=== PATIENT | female | born 1950 ===

== ENCOUNTER → 2023-03-29 | Outpatient (CLI) | payer MEDICARE, OTHER | LOC: LAB 14:57 → LAB SHORT 14:57 | DX: J02.9 Acute pharyngitis, unspecified (principal) | CPT/HCPCS: 87081 ==

== ENCOUNTER → 2023-07-10 | Outpatient (CLI) | payer MEDICARE, OTHER ==
[2023-07-11 15:48] LABS: Adenovirus F 40/41 Not Detected (NOT DETECT); Astrovirus Not Detected (NOT DETECT); Campylobacter Sp Not Detected (NOT DETECT); Cryptosporidium Not Detected (NOT DETECT); Cyclospora Cayetanensis Not Detected (NOT DETECT); E. Coli O157 Not Detected (NOT DETECT); Entamoeba Histolytica Not Detected (NOT DETECT); Enteroaggregative E. coli-EAEC Not Detected (NOT DETECT); Enteropathogenic E. coli-EPEC Not Detected (NOT DETECT); Enterotoxigenic E. coli-ETEC Not Detected (NOT DETECT); Giardia Lamblia Not Detected (NOT DETECT); Norovirus GI/GII Not Detected (NOT DETECT); Plesiomonas Shigelloides Not Detected (NOT DETECT); Rotavirus A Not Detected (NOT DETECT); Salmonella Sp Not Detected (NOT DETECT); Sapovirus Not Detected (NOT DETECT); Shiga Toxin-prod E. coli-STEC Not Detected (NOT DETECT); Shigella/Enteroin E. coli-EIEC Not Detected (NOT DETECT); Vibrio Cholerae Not Detected (NOT DETECT); Vibrio Sp Not Detected (NOT DETECT); Yersinia Enterocolitica Not Detected (NOT DETECT)
== END ==
LOC: LAB 09:15 → LAB SHORT 09:15
PROVIDERS: Physician Assistant
DX: R19.7 Diarrhea, unspecified (principal)
CPT/HCPCS: 87507

== ENCOUNTER → 2023-10-28 | Outpatient (CLI) | payer MEDICARE, OTHER | END | disposition home or self-care (01) | LOC: LAB 09:57 → LAB SHORT 09:57 | DX: N39.0 Urinary tract infection, site not specified (principal) | CPT/HCPCS: 87077; 87086; 87147; 87186 ==

== ENCOUNTER → 2023-12-18 | Outpatient (CLI) | payer MEDICARE, OTHER | LOC: LAB 10:36 → LAB SHORT 10:36 | DX: N39.0 Urinary tract infection, site not specified (principal) | CPT/HCPCS: 87086 ==

== ENCOUNTER → 2023-12-25 | Outpatient (CLI) | payer MEDICARE, OTHER ==
[2023-12-27 18:46] LABS: PANCREATIC ELASTASE,FECAL >800 ug/g (>=100)
== END ==
LOC: LAB 14:53 → LAB SHORT 14:53
PROVIDERS: Physician Assistant
DX: R19.4 Change in bowel habit (principal); Z79.899 Other long term (current) drug therapy
CPT/HCPCS: 82653

== ENCOUNTER → 2023-12-28 | Outpatient (CLI) | payer MEDICARE, OTHER | LOC: LAB SHORT 13:55 → LAB 13:55 | DX: R82.998 Other abnormal findings in urine (principal) | CPT/HCPCS: 87086 ==

== ENCOUNTER 2024-10-08 10:30 | Observation (INO) | payer MEDICARE, OTHER ==
[~2024-10-08] VITALS: Ht 160 cm; Wt 55.5 kg
[2024-10-08] MEDS ORDERED: HydrALAZINE HCl 20 MG / ML 1ML Vial IV PRN (13:50)
[2024-10-08 15:29] VITALS: BP 191/102
[2024-10-08] MEDS ORDERED: ESTRADIOL42.5 GM (16:04)
[2024-10-08] MEDS ORDERED: ASCORBIC ACID500 MG PO (16:04)
[2024-10-08] MEDS ORDERED: LACT PO (16:05)
[2024-10-08] MEDS ORDERED: URITRAX47 GM PO (16:06)
[2024-10-08 16:49] VITALS: BP 196/86
[2024-10-08 17:24] LABS: CHOL/HDL RATIO 2.7; Cholesterol 244 mg/dL (50-200); HDL Cholesterol 90 mg/dL (>39); LDL/HDL RATIO 1.6; Low Density Lipoprotein Chol 142 mg/dL (0-110); Triglycerides 60 mg/dL (30-160); Very Low Density Lipoprot Chol 12 mg/dL (6-32)
--- NOTE | 2024-10-08 17:30 | NUR ---
DR DUKES NOTIFIED OF PATIENTS ELEVATED BLOOD PRESSURE IN 'S. PT WAS EDUCATED ON PRN HYDRALAZINE AND IS VERY HESITANT TO TAKE SHE STATES SHE IS VERY SENSITIVE MEDICATIONS AND AFRAID HER BLOOD PRESSURE WILL DROP TOO LOW.
[2024-10-08 17:35] VITALS: BP 175/95
[2024-10-08 19:32] VITALS: BP 172/97
[2024-10-08 23:28] VITALS: BP 130/91
--- NOTE | 2024-10-09 05:08 | NUR ---
PT A&O X4, VS IMPROVED IN NIGHT WITH SBP NOW IN 130'S. TELE IS NSR IN 80'S. INDEPENDENT WITH ADL'S AND MOBILITY. DENIES NUMBNESS AND ALL NEURO'S ARE WNL. PLAN FOR MRI TODAY, AND WILL D/C HOME WITH .
[2024-10-09 07:30] VITALS: BP 158/100
--- NOTE | 2024-10-09 08:18 | NUR ---
Pt laying in bed awake a/ox4, pleasant and cooperative with care, is anxious about all medical things, asks many questions, some repetively, was going to refuse the mri, answered her questions about it and is reconsidering, lungs are clear t/o, resp even and unlabored, no cough noted, on r/a, hrr, no edema noted, ppp+1, cap refill <3 sec, vs stable, afebrile, piv to lfa site is clear and patent btx4, abd flat soft nontender, voids without diff, skin c/w/d, maew, roland, call light in reach.
[2024-10-09 08:30] VITALS: BP 146/88
[2024-10-09] MEDS ORDERED: Enoxaparin 40 MG/0.4 ML SYR SC SCH (09:00)
[2024-10-09 11:29] VITALS: BP 145/95
[2024-10-09 15:51] VITALS: BP 143/82
[2024-10-09] MEDS ORDERED: Aspir 8181 MG PO (15:59)
[2024-10-09] MEDS ORDERED: ATOR20 PO (15:59)
[2024-10-09] MEDS ORDERED: LOSA25 PO (15:59)
--- NOTE | 2024-10-09 16:13 | NUR ---
Pt has been discharged to home, piv removed intact, went over discharge instructions with her, she verbalized understanding, new medications faxed to [facility]. waiting on . call light in reach.
--- NOTE | 2024-10-09 16:41 | NUR ---
pt left via ambulation when her arrived with all her belongigns.
== END 2024-10-09 16:38 | disposition home or self-care (01) ==
LOC: ER 10:30 → MEDS 10:31 → ER 15:16 → MEDS 15:54
PROVIDERS: ADMIT Family Medicine
DX: G45.9 Transient cerebral ischemic attack, unspecified (principal); I10 Essential (primary) hypertension; E78.5 Hyperlipidemia, unspecified; Z79.899 Other long term (current) drug therapy; Z66 Do not resuscitate
CPT/HCPCS: 36415; 70551; 80061; 93005; 93010; 93306; 96372; 99284-25; A9270; G0378; J0360; J1650

== ENCOUNTER → 2024-10-19 | Outpatient (CLI) | payer MEDICARE, OTHER ==
[~2024-10-19] MED LIST: ASCORBIC ACID500 MG PO; ATOR20 PO; Aspir 8181 MG PO; ESTRADIOL42.5 GM; LACT PO; LOSA25 PO; URITRAX47 GM PO
[2024-10-19 11:58] LABS: BASOPHILS ABSOLUTE AUTO 0.07 K/mm3 (0.00-0.23); BASOPHILS PERCENT AUTO 1 % (0-2); EOSINOPHILS ABSOLUTE AUTO 0.04 K/mm3 (0.00-0.68); EOSINOPHILS PERCENT AUTO 1 % (0-6); Hematocrit 43.1 % (33.0-51.0); Hemoglobin 14.5 g/dL (11.5-16.0); IMMATURE GRAN ABSOLUTE AUTO 0.02 K/mm3 (0.00-0.10); IMMATURE GRAN PERCENT AUTO 0 % (0-1); LYMPHOCYTES ABSOLUTE AUTO 0.80 K/mm3 (0.84-5.20); LYMPHOCYTES PERCENT AUTO 12 % (21-46); MONOCYTES ABSOLUTE AUTO 0.35 K/mm3 (0.16-1.47); MONOCYTES PERCENT AUTO 5 % (4-13); Mean Corpuscular HGB Conc 33.6 g/dL (31.5-36.5); Mean Corpuscular Volume 86 fL (80-100); NEUTROPHILS ABSOLUTE AUTO 5.51 K/mm3 (1.96-9.15); NEUTROPHILS PERCENT AUTO 81 % (41-73); NRBC ABSOLUTE 0.00 K/mm3 (0.00-0.02); NRBC Auto 0.0 /100 WBC (0.0-0.2); Platelet Count 317 K/mm3 (150-400); RDW Coefficient Variation 11.9 % (11.7-14.2); RDW Standard Deviation 37.4 fL (35.1-46.3)
[2024-10-19 12:58] LABS: Thyroid Stimulating Hormone 0.892 uIU/mL (0.360-4.800)
[2024-10-19 13:02] LABS: Alanine Aminotransfer (ALT/SGP 19 U/L (12-78); Albumin, Blood 4.2 g/dL (3.4-5.0); Albumin/Globulin Ratio 1.2 (0.8-1.8); Anion Gap 8 mmol/L (3-11); Aspartate Aminotrans (AST/SGOT 17 U/L (12-37); Bilirubin, Total 0.7 mg/dL (0.1-1.0); Blood Urea Nitrogen 12 mg/dL (8-24); CO2, Blood 25 mmol/L (21-32); Calcium, Blood 10.5 mg/dL (8.5-10.1); Chloride, Blood 104 mmol/L (98-108); Creatinine, Blood 0.59 mg/dL (0.40-1.00); Globulin, Blood 3.5 g/dL (2.2-4.0); Glucose, Blood 98 mg/dL (70-99); Potassium, Blood 3.9 mmol/L (3.5-5.5); Sodium, Blood 133 mmol/L (136-145); Total Protein, Blood 7.7 g/dL (6.4-8.2)
[2024-10-19 20:31] LABS: C-REACTIVE PROTEIN, EXT RANGE <O.290 mg/dL (0.000-0.300)
[2024-10-21 23:24] LABS: ALPHA 1 GLOBULIN 0.22 g/dL (0.19-0.46); ALPHA 2 GLOBULIN 0.59 g/dL (0.48-1.05); BETA GLOBULIN 0.59 g/dL (0.48-1.10); GAMMA 0.71 g/dL (0.62-1.51); IMMUNOFIXATION IFE Done; KAPPA QNT FREE LIGHT CHAINS 13.53 mg/L (3.30-19.40); KAPPA/LAMBDA FLC RATIO 1.22 (0.26-1.65); LAMBDA QNT FREE LIGHT CHAINS 11.12 mg/L (5.71-26.30); TOTAL PROTEIN, SERUM 6.6 g/dL (6.3-8.2)
== END ==
LOC: LAB 11:05 → LAB SHORT 11:05
PROVIDERS: Physician Assistant
DX: R20.2 Paresthesia of skin (principal)
CPT/HCPCS: 80053; 82607; 82746; 82784; 83521; 84155; 84165; 84443; 85025; 85651; 86140; 86334